=== PATIENT | female | born 1950 | race Caucasian/White ===

== ENCOUNTER 2022-10-05 17:19 | Inpatient (IN) | payer MEDICARE, OTHER ==
[~2022-10-05] VITALS: Ht 152.4 cm; Wt 70.3 kg
--- NOTE | 2022-10-05 19:33 | NUR ---
Patient is awake and alert with no complaints at thsi time. hand off report given to sandhya YE
[2022-10-05 19:44] LABS: ETHANOL < 3 MG/DL (0-0)
[2022-10-05 19:51] LABS: HEMATOCRIT 34.7 % (31.2-41.9); MEAN CORPUSCULAR HEMOGLOBIN 33.8 uug (24.7-32.8); MEAN CORPUSCULAR VOLUME 101.9 fL (75.5-95.3); PLATELET COUNT (AUTO) 144 K/uL (179-408)
[2022-10-05 20:12] LABS: MAGNESIUM 2.4 mg/dL (1.8-2.4); PHOSPHOROUS 6.7 mg/dL (2.5-4.9)
[2022-10-05 20:21] LABS: ALANINE AMINOTRANSFERASE 171 U/L (14-59); ALKALINE PHOSPHATASE 318 U/L (50-136); ASPARTATE AMINOTRANSFERASE 171 U/L (15-37); BILIRUBIN,DIRECT 0.3 mg/dL (0.0-0.2); BILIRUBIN,TOTAL 0.7 mg/dL (0.2-1.0); CARBON DIOXIDE 22 mmol/L (21-32); CHLORIDE 102 mmol/L (98-107); GLUCOSE 124 mg/dL (74-106); POTASSIUM 6.2 mmol/L (3.5-5.1); TOTAL PROTEIN, SERUM 8.1 g/dL (6.4-8.2); UREA NITROGEN, BLOOD 76 mg/dL (7-18)
[2022-10-05 20:22] LABS: ACETAMINOPHEN < 2.0 ug/mL (10-30)
[2022-10-05 20:23] LABS: THYROID STIMULATING HORMONE 1.636 mIU/mL (0.358-3.740)
[2022-10-05] MEDS ORDERED: POTASSIUM CHLORIDE 0 ML ONE (20:42)
[2022-10-05] MEDS ORDERED: FUROSEMIDE 20 MG/2 ML VIAL ONE (20:42)
[2022-10-05] MEDS ORDERED: SODIUM POLYSTYRENE SULFONATE 15 G/60 ML LIQUID UDC ONE ×2 (20:43→21:51)
[2022-10-05] MEDS ORDERED: INSULIN REGULAR, HUMAN 300 UNIT/3 ML VIAL IV ONE (20:45)
[2022-10-05] MEDS ORDERED: DEXTROSE 50% 50 ML DISP.SYRIN IV ONE (20:45)
[2022-10-05] MEDS ORDERED: SODIUM POLYSTYRENE SULFONATE 15 G/60 ML LIQUID UDC PO ONE (20:45)
[2022-10-05] MEDS ORDERED: FUROSEMIDE 20 MG/2 ML VIAL IVP ONE (20:45)
[2022-10-05] MEDS ORDERED: SODIUM BICARBONATE 8.4% 50 MEQ/50 ML DISP.SYRIN IV ONE ×2 (20:45→21:09)
--- NOTE | 2022-10-05 20:47 | NUR ---
Called [facility] nephrology to augie Guaman MD.
[2022-10-05] MEDS ORDERED: REMEDY ESSENTIAL ZINC PASTE 113 GM TP PRN (21:30)
[2022-10-05] MEDS ORDERED: hydrALAZINE HCL 20 MG/1 ML VIAL IV PRN (21:30)
[2022-10-05] MEDS ORDERED: HYDROCODONE/APAP 5-325MG TABLET PO PRN (21:30)
--- NOTE | 2022-10-06 00:30 | NUR ---
PATIENT AWAKE IN BED. ALERT TO SELF. FAROESE SPEAKING. VSS. MID-LINE NOTED TO RIGHT UPPER ARM, INTACT. NO S/S OF ANY PAIN OR DISCOMFORT. NO RESP. DISTRESS NOTED. CALL LIGHT IN REACH. ALL NEEDS ATTENDED. WILL CONTINUE TO MONITOR AND ASSESS.
[2022-10-06 01:00] VITALS: BP 130/68
--- NOTE | 2022-10-06 03:06 | NUR ---
PATIENT AWAKE IN BED, STARRING AT THE WALL. ALERT TO SELF. EYES APPEARS GLASSY. CHECKED PATIENTS BLOOD SUGAR AND RECEIVED 52. PATIENT AWAKE ENOUGH TO DRINK PO FLUIDS. PATIENT GIVEN JUICE. WILL RECHECK. COMM[facility]ITY CENTER COORDINATOR NOTIFIED.
--- NOTE | 2022-10-06 03:39 | NUR ---
patient awake in bed. rechecked patients blood sugar 75. will continue to monitor and asses.
[2022-10-06 03:50] VITALS: BP 102/70
--- NOTE | 2022-10-06 06:00 | NUR ---
PATIENT ASLEEP. ON TELE SR. BED ALARM ON. CALL LIGHT IN REACH. ALL NEEDS ATTENDED. WILL CONTINUE TO MONITOR AND ASSESS.
[2022-10-06] MEDS: PANTOPRAZOLE SODIUM 40 MG TABLET.DR PO SCH (06:03)
[2022-10-06] MEDS: HEPARIN SODIUM,PORCINE 5,000 UNITS/ML VIAL SQ SCH ×2 (08:04→20:48)
[2022-10-06 10:05] LABS: HEMATOCRIT 32.7 % (31.2-41.9); MEAN CORPUSCULAR HEMOGLOBIN 34.3 uug (24.7-32.8); MEAN CORPUSCULAR VOLUME 100.5 fL (75.5-95.3); PLATELET COUNT (AUTO) 135 K/uL (179-408)
[2022-10-06] MEDS ORDERED: AMLO10TA59 PO (10:13)
[2022-10-06] MEDS ORDERED: HYDR100T27 PO (10:13)
[2022-10-06] MEDS ORDERED: SERT50TA PO (10:13)
[2022-10-06] MEDS ORDERED: SEVE800T8 PO (10:13)
[2022-10-06] MEDS ORDERED: LOSA100T31 PO (10:13)
[2022-10-06 10:16] LABS: ALANINE AMINOTRANSFERASE 104 U/L (14-59); ALKALINE PHOSPHATASE 258 U/L (50-136); ASPARTATE AMINOTRANSFERASE 72 U/L (15-37); BILIRUBIN,TOTAL 0.6 mg/dL (0.2-1.0); CARBON DIOXIDE 30 mmol/L (21-32); CHLORIDE 99 mmol/L (98-107); CREATININE 6.2 mg/dL (0.6-1.3); GLUCOSE 157 mg/dL (74-106); PHOSPHOROUS 4.3 mg/dL (2.5-4.9); POTASSIUM 3.7 mmol/L (3.5-5.1); TOTAL PROTEIN, SERUM 7.4 g/dL (6.4-8.2); UREA NITROGEN, BLOOD 34 mg/dL (7-18)
[2022-10-06 11:51] VITALS: BP 161/72
[2022-10-06] MEDS ORDERED: SEVELAMER CARBONATE 800 MG TABLET PO SCH (12:00)
[2022-10-06] MEDS: hydrALAZINE HCL 50 MG TABLET PO SCH ×2 (13:30→16:12)
--- NOTE | 2022-10-06 13:34 | NUR ---
pt having 13 sec pause while nurse at bed side giving her medication right after that pt through up large emesis dr rodriguez notified and dr mao notified new orders received noted and carried out
[2022-10-06 13:35] VITALS: BP 166/70
[2022-10-06 15:12] LABS: CARBON DIOXIDE 30 mmol/L (21-32); CHLORIDE 99 mmol/L (98-107); CREATININE 6.5 mg/dL (0.6-1.3); GLUCOSE 109 mg/dL (74-106); POTASSIUM 4.2 mmol/L (3.5-5.1); UREA NITROGEN, BLOOD 38 mg/dL (7-18)
[2022-10-06 15:18] LABS: ALANINE AMINOTRANSFERASE 102 U/L (14-59); ALKALINE PHOSPHATASE 245 U/L (50-136); ASPARTATE AMINOTRANSFERASE 60 U/L (15-37); BILIRUBIN,TOTAL 0.7 mg/dL (0.2-1.0); TOTAL PROTEIN, SERUM 7.2 g/dL (6.4-8.2)
[2022-10-06 15:20] LABS: HEMATOCRIT 32.5 % (31.2-41.9); MEAN CORPUSCULAR VOLUME 101.2 fL (75.5-95.3); PLATELET COUNT (AUTO) 128 K/uL (179-408)
[2022-10-06 16:00] VITALS: BP 181/71
[2022-10-06] MEDS: ONDANSETRON 4 MG/2 ML VIAL IV PRN ×2 (16:13→22:17)
[2022-10-06] MEDS ORDERED: SEVELAMER CARBONATE 800 MG POWD.PACK PO SCH (18:00)
[2022-10-06 20:00] VITALS: BP 135/61
--- NOTE | 2022-10-06 20:30 | NUR ---
RECEIVED PATIENT AWAKE IN BED. A/O 1-2. DIVEHI SPEAKING. PATIENT C/O PAIN. VSS. CALL LIGHT IN REACH. ALL NEEDS ATTENDED. WILL CONTINUE TO MONITOR.
[2022-10-06] MEDS: SERTRALINE HCL 50 MG TABLET PO SCH (20:48)
--- NOTE | 2022-10-06 21:10 | NUR ---
PATIENT GIVEN NORCO 1 TAB PO PRN FOR PAIN. WILL CONTINUE TO MONITOR AND ASSESS.
--- NOTE | 2022-10-06 22:15 | NUR ---
PATIENT AWAKE IN BED. RN AT BEDSIDE TO ADMINISTERED ZOFRAN IV. PATIENT VOMITED LARGE AMOUNT OF EMESIS. IT WAS ALSO REPORTED THAT PATIENT HAD AN 8 SECOND PAUSE. VITAL SIGNS TAKEN. ALL VS WNL. AWARE. ON TELE SR. CALL LIGHT IN REACH. ALL NEEDS ATTENDED. WILL CONTINUE TO MONITOR AND ASSESS.
[2022-10-07 00:11] VITALS: BP 136/40
[2022-10-07 04:28] VITALS: BP 117/42
--- NOTE | 2022-10-07 06:00 | NUR ---
PATIENT ASLEEP. ON TELE SR. BED ALARM ON.
[2022-10-07] MEDS: PANTOPRAZOLE SODIUM 40 MG TABLET.DR PO SCH (06:18)
[2022-10-07 06:55] LABS: HEMATOCRIT 32.9 % (31.2-41.9); MEAN CORPUSCULAR HEMOGLOBIN 34.6 uug (24.7-32.8); MEAN CORPUSCULAR VOLUME 99.4 fL (75.5-95.3); PLATELET COUNT (AUTO) 140 K/uL (179-408)
[2022-10-07] MEDS: ONDANSETRON 4 MG/2 ML VIAL IV PRN ×2 (07:25→21:32)
[2022-10-07 07:27] LABS: CARBON DIOXIDE 27 mmol/L (21-32); CHLORIDE 99 mmol/L (98-107); GLUCOSE 95 mg/dL (74-106); MAGNESIUM 2.1 mg/dL (1.8-2.4); PHOSPHOROUS 6.6 mg/dL (2.5-4.9); POTASSIUM 4.2 mmol/L (3.5-5.1); UREA NITROGEN, BLOOD 43 mg/dL (7-18)
[2022-10-07] MEDS: SEVELAMER CARBONATE 800 MG POWD.PACK PO SCH ×3 (08:00→17:07)
[2022-10-07] MEDS ORDERED: SEVELAMER CARBONATE 800 MG TABLET PO SCH (08:00)
[2022-10-07] MEDS: HEPARIN SODIUM,PORCINE 5,000 UNITS/ML VIAL SQ SCH (08:10)
[2022-10-07 08:20] LABS: CREATININE 7.7 mg/dL (0.6-1.3)
--- NOTE | 2022-10-07 08:30 | NUR ---
pt having 10 sec pause after that pt through up large emesis dr rodriguez notified pt vs are bp 140/53 hr 70 resp 22 temp 98.1 ,pt is [id number] avail to notified the needs
[2022-10-07] MEDS: AMLODIPINE 10 MG TABLET PO SCH (08:56)
[2022-10-07] MEDS: LOSARTAN POTASSIUM 50 MG TABLET PO SCH (08:56)
[2022-10-07] MEDS ORDERED: SERTRALINE HCL 50 MG TABLET PO SCH (09:00)
[2022-10-07] MEDS: hydrALAZINE HCL 50 MG TABLET PO SCH ×3 (09:25→17:00)
[2022-10-07 10:10] LABS: *BILIRUBIN,URIN NEGATIVE (NEGATIVE); *BLOOD, URINE 2+ (NEGATIVE); *CLARITY,URINE CLEAR (CLEAR); *COLOR,URINE YELLOW (YELLOW); *KETONES,URINE NEGATIVE (NEGATIVE); *UROBILINOGEN,URINE 0.2 E.U./dl (NORMAL); LEUKOCYTE ESTERASE ,URINE 1+ (NEGATIVE); NITRITE, URINE NEGATIVE (NEGATIVE); PH,URINE 8.5 (5.0-8.0); UGLUCOSE TRACE (NEGATIVE)
[2022-10-07] MEDS ORDERED: HEPARIN SODIUM,PORCINE 1,000 UNITS/ML VIAL ONE ×2 (10:32→10:33)
[2022-10-07] MEDS ORDERED: NS ONE (10:32)
[2022-10-07] MEDS ORDERED: HEPARIN ONE (10:32)
[2022-10-07] MEDS ORDERED: BUPIVACAINE 0.25% 30 ML VIAL ONE (10:32)
--- NOTE | 2022-10-07 10:50 | NUR ---
pt went to the or via bed for pacemaker insertion
[2022-10-07] MEDS ORDERED: FENTANYL CITRATE 100 MCG/2 ML AMPUL ONE (11:02)
[2022-10-07] MEDS ORDERED: IOHEXOL-240 MG , 50 ML VIAL IV ONE (11:36)
[2022-10-07 13:03] LABS: RBC,URINE 20-50 /HPF (0-3); WBC,URINE 0-3 /HPF (0-3)
[2022-10-07 13:04] LABS: BACTERIA,URINE FEW /HPF (NONE SEEN); SQUAMOUS EPITHELIAL CELL,UR FEW /HPF (NONE SEEN)
--- NOTE | 2022-10-07 13:47 | NUR ---
pt received from recovery room via bed in stable condition,vs are stable call light with in reach ,family at bed side
[2022-10-07 13:53] VITALS: BP 162/68
[2022-10-07] MEDS ORDERED: OSELTAMIVIR PHOSPHATE 75 MG CAPSULE PO SCH (14:15)
[2022-10-07 16:00] VITALS: BP 148/79
[2022-10-07] MEDS ORDERED: OSELTAMIVIR PHOSPHATE 75 MG CAPSULE PO ONE (17:00)
[2022-10-07] MEDS ORDERED: PROPOFOL 200 MG/20 ML BOTTLE IV ONE (17:42)
[2022-10-07] MEDS ORDERED: CEFAZOLIN 1 G VIAL IM ONE (17:42)
[2022-10-07] MEDS ORDERED: ONDANSETRON 4 MG/2 ML VIAL IV ONE (17:42)
[2022-10-07] MEDS ORDERED: METOCLOPRAMIDE HCL 10 MG/2 ML VIAL IV ONE (17:42)
--- NOTE | 2022-10-07 20:00 | NUR ---
RECEIVED PATIENT AWAKE IN BED. A/O X2. [place]UG[place] SPEAKING. DENIES PAIN, NO FACIAL GRIMACE NOTED. VS WNL. MID-LINE NOTED TO RIGHT UPPER ARM. NO RESP. DISTRESS NOTED. ON TELE SR. CALL LIGHT IN REACH. ALL NEEDS ATTENDED. WILL CONTINUE TO MONITOR AND ASSESS.
[2022-10-07 20:52] VITALS: BP 109/88
[2022-10-07] MEDS: SERTRALINE HCL 50 MG TABLET PO SCH (20:54)
--- NOTE | 2022-10-07 21:35 | NUR ---
PATIENT AWAKE IN BED. VOMITED MEDIUM AMOUNT OF EMESIS. PATIENT GIVEN ZOFRAN 4MG IV PRN PER DEFENSE TRAVEL ADMINISTRATOR. WILL CONTINUE TO MONITOR AND ASSESS.
--- NOTE | 2022-10-07 21:40 | NUR ---
PATIENT APPEARS VERY ANXIOUS. TOSSING BACK AND FORTH IN BED. CALLED OUT TO ELOY GA NP FOR FURTHER ORDERS.
[2022-10-07] MEDS ORDERED: LORAZEPAM 2 MG/1 ML VIAL IV ONE (22:00)
--- NOTE | 2022-10-07 22:10 | NUR ---
PATIENT GIVEN ATIVAN 0.5MG IV PRN PER LAND RESOURCE SPECIALIST. VSS. ON TELE SR. CALL LIGHT IN REACH. ALL NEEDS ATTENDED. WILL CONTINUE TO MONITOR AND ASSESS.
--- NOTE | 2022-10-08 00:30 | NUR ---
PATIENT ASLEEP IN BED. NO RESP. DISTRESS NOTED. ON TELE SR. CALL LIGHT IN REACH. ALL NEEDS ATTENDED. WILL CONTINUE TO MONITOR AND ASSESS.
[2022-10-08 04:45] VITALS: BP 152/42
[2022-10-08] MEDS: PANTOPRAZOLE SODIUM 40 MG TABLET.DR PO SCH (06:36)
--- NOTE | 2022-10-08 06:36 | NUR ---
ELOY GA, HOME HEALTH CARE CASE MANAGER ORDERED SWALLOW EVALUATION. PROTONIX NOT GIVEN AT THIS TIME. HOME HEALTH CARE CASE MANAGER NOTIFIED THAT PATIENT HAD TROUBLE SWALLOWING LAST NIGHT. ON TELE SR. WILL CONTINUE TO MONITOR AND ASSESS.
[2022-10-08 07:34] LABS: CARBON DIOXIDE 27 mmol/L (21-32); CHLORIDE 98 mmol/L (98-107); GLUCOSE 85 mg/dL (74-106); MAGNESIUM 2.1 mg/dL (1.8-2.4); POTASSIUM 4.4 mmol/L (3.5-5.1); UREA NITROGEN, BLOOD 51 mg/dL (7-18)
[2022-10-08 08:10] LABS: PHOSPHOROUS 8.4 mg/dL (2.5-4.9)
[2022-10-08] MEDS: SEVELAMER CARBONATE 800 MG POWD.PACK PO SCH ×3 (08:41→17:32)
[2022-10-08 08:46] LABS: HEMATOCRIT 33.1 % (31.2-41.9); MEAN CORPUSCULAR HEMOGLOBIN 34.4 uug (24.7-32.8); MEAN CORPUSCULAR VOLUME 101.4 fL (75.5-95.3); PLATELET COUNT (AUTO) 109 K/uL (179-408)
[2022-10-08] MEDS: HEPARIN SODIUM,PORCINE 5,000 UNITS/ML VIAL SQ SCH ×2 (09:00→21:00)
[2022-10-08] MEDS: AMLODIPINE 10 MG TABLET PO SCH (10:17)
[2022-10-08] MEDS: hydrALAZINE HCL 50 MG TABLET PO SCH ×3 (10:18→17:00)
[2022-10-08] MEDS: LOSARTAN POTASSIUM 50 MG TABLET PO SCH (10:18)
[2022-10-08 12:00] VITALS: BP 201/81
[2022-10-08 16:00] VITALS: BP 131/98
[2022-10-08] MEDS ORDERED: OSELTAMIVIR PHOSPHATE 75 MG CAPSULE PO ONE (20:00)
[2022-10-08 20:42] VITALS: BP 144/50
[2022-10-08] MEDS: SERTRALINE HCL 50 MG TABLET PO SCH (22:08)
[2022-10-08] MEDS ORDERED: HALOPERIDOL LACTATE 5 MG/1 ML VIAL IM ONE (22:15)
--- NOTE | 2022-10-08 22:30 | NUR ---
Pt agitated and confused. Received MD order to give Haldol IM. Administered medication as ordered. Will continue to monitor. Safety precautions maintained.
[2022-10-08] MEDS: ONDANSETRON 4 MG/2 ML VIAL IV PRN (23:34)
[2022-10-09 00:06] LABS: HEPATITIS B SURFACE AG Negative (Negative)
[2022-10-09 00:45] VITALS: BP 125/52
[2022-10-09 04:55] VITALS: BP 163/65
[2022-10-09 06:06] LABS: HEPATITIS B SURFACE AG Negative (Negative)
[2022-10-09] MEDS: PANTOPRAZOLE SODIUM 40 MG TABLET.DR PO SCH (06:37)
[2022-10-09] MEDS: AMLODIPINE 10 MG TABLET PO SCH (08:14)
[2022-10-09] MEDS: hydrALAZINE HCL 50 MG TABLET PO SCH ×3 (08:14→16:07)
[2022-10-09] MEDS: LOSARTAN POTASSIUM 50 MG TABLET PO SCH (08:14)
[2022-10-09] MEDS: SEVELAMER CARBONATE 800 MG POWD.PACK PO SCH ×3 (08:14→17:36)
[2022-10-09] MEDS: HEPARIN SODIUM,PORCINE 5,000 UNITS/ML VIAL SQ SCH ×2 (09:19→21:22)
[2022-10-09 12:28] LABS: HEMATOCRIT 31.1 % (31.2-41.9); MEAN CORPUSCULAR HEMOGLOBIN 34.1 uug (24.7-32.8); MEAN CORPUSCULAR VOLUME 100.1 fL (75.5-95.3); PLATELET COUNT (AUTO) 158 K/uL (179-408)
[2022-10-09 12:43] LABS: CARBON DIOXIDE 29 mmol/L (21-32); CHLORIDE 96 mmol/L (98-107); CREATININE 7.1 mg/dL (0.6-1.3); GLUCOSE 110 mg/dL (74-106); MAGNESIUM 2.1 mg/dL (1.8-2.4); PHOSPHOROUS 6.4 mg/dL (2.5-4.9); POTASSIUM 4.2 mmol/L (3.5-5.1); UREA NITROGEN, BLOOD 35 mg/dL (7-18)
[2022-10-09 13:32] LABS: BILIRUBIN,DIRECT 0.1 mg/dL (0.0-0.2); BILIRUBIN,TOTAL 0.5 mg/dL (0.2-1.0); TOTAL PROTEIN, SERUM 7.2 g/dL (6.4-8.2)
[2022-10-09 15:53] VITALS: BP 157/51
[2022-10-09 20:00] VITALS: BP 155/57
[2022-10-09] MEDS: ACETAMINOPHEN 325 MG TABLET PO PRN (21:20)
[2022-10-09] MEDS: SERTRALINE HCL 50 MG TABLET PO SCH (21:20)
[2022-10-10] VITALS: BP 153/55
[2022-10-10 04:00] VITALS: BP 106/74
[2022-10-10 08:09] VITALS: BP 164/48
[2022-10-10] MEDS: ONDANSETRON 4 MG/2 ML VIAL IV PRN (08:39)
[2022-10-10] MEDS: hydrALAZINE HCL 50 MG TABLET PO SCH ×3 (08:40→17:49)
[2022-10-10] MEDS: PANTOPRAZOLE SODIUM 40 MG TABLET.DR PO SCH (08:40)
[2022-10-10] MEDS: HEPARIN SODIUM,PORCINE 5,000 UNITS/ML VIAL SQ SCH ×2 (08:47→21:24)
[2022-10-10] MEDS: SEVELAMER CARBONATE 800 MG POWD.PACK PO SCH ×3 (08:50→17:49)
[2022-10-10] MEDS: LOSARTAN POTASSIUM 50 MG TABLET PO SCH (08:51)
[2022-10-10] MEDS: AMLODIPINE 10 MG TABLET PO SCH (08:52)
[2022-10-10] MEDS ORDERED: OSELTAMIVIR PHOSPHATE 75 MG CAPSULE PO ONE (10:00)
[2022-10-10] MEDS ORDERED: METOCLOPRAMIDE HCL 10 MG/2 ML VIAL IV PRN (11:15)
[2022-10-10 12:00] VITALS: BP 130/71
[2022-10-10 12:52] LABS: HEMATOCRIT 34.5 % (31.2-41.9); MEAN CORPUSCULAR HEMOGLOBIN 33.8 uug (24.7-32.8); MEAN CORPUSCULAR VOLUME 98.6 fL (75.5-95.3); PLATELET COUNT (AUTO) 179 K/uL (179-408)
[2022-10-10 13:07] LABS: CARBON DIOXIDE 30 mmol/L (21-32); CHLORIDE 95 mmol/L (98-107); CREATININE 6.4 mg/dL (0.6-1.3); GLUCOSE 116 mg/dL (74-106); PHOSPHOROUS 4.2 mg/dL (2.5-4.9); POTASSIUM 3.5 mmol/L (3.5-5.1); UREA NITROGEN, BLOOD 30 mg/dL (7-18)
[2022-10-10 16:00] VITALS: BP 118/92
[2022-10-10] MEDS: NEPRO (VANILLA) 237 ML CAN PO SCH (17:50)
[2022-10-10 20:00] VITALS: BP 127/49
[2022-10-10] MEDS: SERTRALINE HCL 50 MG TABLET PO SCH (21:23)
[2022-10-10] MEDS: ACETAMINOPHEN 325 MG TABLET PO PRN (21:26)
[2022-10-11 00:07] VITALS: BP 95/53
[2022-10-11 04:00] VITALS: BP 98/50
[2022-10-11] MEDS: PANTOPRAZOLE SODIUM 40 MG TABLET.DR PO SCH (06:20)
[2022-10-11] MEDS: AMLODIPINE 10 MG TABLET PO SCH (08:42)
[2022-10-11] MEDS: hydrALAZINE HCL 50 MG TABLET PO SCH ×2 (08:42→12:11)
[2022-10-11] MEDS: LOSARTAN POTASSIUM 50 MG TABLET PO SCH (08:42)
[2022-10-11] MEDS: SEVELAMER CARBONATE 800 MG POWD.PACK PO SCH ×2 (08:43→11:21)
[2022-10-11] MEDS: NEPRO (VANILLA) 237 ML CAN PO SCH ×2 (08:43→12:11)
[2022-10-11] MEDS: HEPARIN SODIUM,PORCINE 5,000 UNITS/ML VIAL SQ SCH (08:43)
[2022-10-11 08:46] VITALS: BP 180/62
[2022-10-11 09:38] LABS: CARBON DIOXIDE 32 mmol/L (21-32); CHLORIDE 95 mmol/L (98-107); GLUCOSE 98 mg/dL (74-106); HEMATOCRIT 33.5 % (31.2-41.9); MAGNESIUM 2.1 mg/dL (1.8-2.4); MEAN CORPUSCULAR HEMOGLOBIN 34.3 uug (24.7-32.8); MEAN CORPUSCULAR VOLUME 100.7 fL (75.5-95.3); PHOSPHOROUS 6.8 mg/dL (2.5-4.9); PLATELET COUNT (AUTO) 163 K/uL (179-408); POTASSIUM 3.9 mmol/L (3.5-5.1); UREA NITROGEN, BLOOD 39 mg/dL (7-18)
[2022-10-11 09:53] LABS: CREATININE 8.1 mg/dL (0.6-1.3)
[2022-10-11 12:00] VITALS: BP 105/64
[2022-10-11 12:11] VITALS: BP 140/62
[2022-10-11] MEDS ORDERED: METO-295 PO (12:59)
--- NOTE | 2022-10-11 13:20 | NUR ---
dc orders received noted and carried out,dc midline per md orders,dc instruction and education given to the son.pt left the facility via private car in stable condition
== END 2022-10-11 13:20 | disposition home or self-care (01) | DRG 981 ==
LOC: ER 18:53 → TELE3 22:22 → TELE-TD3 10-07 13:51 → TELE3 10-07 18:33
PROVIDERS: ATTEND Registered Nurse
PROC: 5A1D70Z Performance of Urinary Filtration, Intermittent, Less than 6 Hours Per Day (ICD-10-PCS; 2022-10-05)
PROC: 05HD33Z Insertion of Infusion Device into Right Cephalic Vein, Percutaneous Approach (ICD-10-PCS; 2022-10-06)
PROC: B54MZZA Ultrasonography of Right Upper Extremity Veins, Guidance (ICD-10-PCS; 2022-10-06)
PROC: 02HK3JZ Insertion of Pacemaker Lead into Right Ventricle, Percutaneous Approach (ICD-10-PCS; principal; 2022-10-07)
PROC: 0JH606Z Insertion of Pacemaker, Dual Chamber into Chest Subcutaneous Tissue and Fascia, Open Approach (ICD-10-PCS; principal; 2022-10-07)
PROC: 02H63JZ Insertion of Pacemaker Lead into Right Atrium, Percutaneous Approach (ICD-10-PCS; principal; 2022-10-07)
DX: E87.5 Hyperkalemia (principal); N18.6 End stage renal disease; I12.0 Hypertensive chronic kidney disease with stage 5 chronic kidney disease or end stage renal disease; I44.2 Atrioventricular block, complete; I82.B11 Acute embolism and thrombosis of right subclavian vein; D53.9 Nutritional anemia, unspecified; D69.6 Thrombocytopenia, unspecified; Z20.822 Contact with and (suspected) exposure to COVID-19; Z99.2 Dependence on renal dialysis; R74.01 Elevation of levels of liver transaminase levels; D50.9 Iron deficiency anemia, unspecified; D63.8 Anemia in other chronic diseases classified elsewhere; J10.1 Influenza due to other identified influenza virus with other respiratory manifestations
CPT/HCPCS: 36415; 51702; 70450; 71045; 83605; 83735; 84100; 84443; 84484; 85025; 85730; 86706; 87040; 87340; 87400; 90937; 93005; A4649; A4663; C1785; G0378; G0480; J0690; J1630; J1644; J1940; J2060; J2405; J2765; J3010; J3480; J3490; J7040; J7050; Q9966